=== PATIENT | male | born 1985 | race Caucasian/White ===

== ENCOUNTER 2024-03-14 20:32 | Emergency (ER) | payer OTHER ==
[~2024-03-14] VITALS: Ht 177.8 cm; Wt 81.6 kg
[2024-03-14 20:55] VITALS: BP 150/100; PULSE 101; RESP 16; TEMP 97.2; O2SAT 98
== END 2024-03-14 23:15 | disposition left against medical advice (07) ==
LOC: MED 20:32
DX: R11.2 Nausea with vomiting, unspecified (principal); Z53.21 Procedure and treatment not carried out due to patient leaving prior to being seen by health care provider